=== PATIENT | male | born 1960 | race African-American/Black ===

== ENCOUNTER 2017-11-05 15:34 | Emergency (ER) | payer MEDICARE ==
[2017-11-05 15:56] LABS: Glucose,Whole Blood 91 mg/dL (75-99)
--- NOTE | 2017-11-05 17:39 | ED ---
Recheck HPI - General Chief Complaint: Recheck/Abnormal Lab/Rx Stated Complaint: Black Left Big Toe Time Seen by Provider: 11/05/17 16:56 Source: patient, RN notes reviewed Mode of arrival: ambulatory Limitations: no limitations - History of Present Illness Initial Comments: This a 56-year-old male presents emergency Department chief complaint infection to his left foot first digit. Patient states she saw a waiter/waitress captain for his right and left foot his toenail removed on the right side states his symptoms are getting better over there but states it left ear was not bad up until last few days. Patient states that he noticed some posturing out from underneath his nail states that there is some black scabby-like area underneath his nail. He states it is slightly painful. Denies any known fever, chills. No warmth to his foot no swelling to his foot. He denies trauma. Patient claims that his diabetic pill he does not take any medications for diabetes. Patient currently takes [place], ibuprofen and lisinopril. Patient states he does watches his diet well. Patient's current blood glucose is 91. Patient offers no other complaints. - Related Data Previous Rx's Medication Instructions Recorded Sulfamethox-Tmp 800-160Mg [Bactrim 1 each PO Q12HR #20 tab 11/05/17 Ds] Allergies Allergy/AdvReac Type Severity Reaction Status Date / Time ibuprofen [From Motrin] AdvReac Nausea & Verified 11/05/17 15:55 Vomiting Review of Systems ROS Statement: Those systems with pertinent positive or pertinent negative responses have been documented in the HPI. ROS Other: All systems not noted in ROS Statement are negative. Past Medical History Past Medical History: Diabetes Mellitus, Hyperlipidemia, Hypertension History of Any Multi-Drug Resistant Organisms: None Reported Past Surgical History: Back Surgery Additional Past Surgical History / Comment(s): pain pump , right toe Past Psychological History: No Psychological Hx Reported Smoking Status: Former smoker Past Alcohol Use History: None Reported Past Drug Use History: None Reported General Exam Limitations: no limitations General appearance: alert, in no apparent distress Head exam: Present: atraumatic, normocephalic, normal inspection Respiratory exam: Present: normal lung sounds bilaterally. Absent: respiratory distress, wheezes, rales, rhonchi, stridor Cardiovascular Exam: Present: regular rate, normal rhythm, normal heart sounds. Absent: systolic murmur, diastolic murmur, rubs, gallop, clicks Extremities exam: Present: other (Left foot first digit there is some scabbing in drainage noted from the distal part underneath his nail there is mild tenderness to the told there is no swelling there is no redness or discoloration pedal pulses are equal bilaterally there is a signs of onychomycosis) Skin exam: Present: warm, dry, intact, normal color. Absent: rash Course Vital Signs 11/05/17 15:50 Temperature 97.0 F L Pulse Rate 78 Respiratory 16 Rate Blood Pressure 162/89 O2 Sat by Pulse 98 Oximetry Medical Decision Making - Medical Decision Making 56-year-old male presents emergency Department chief complaint of toe infection. Patient has primarily onychomycosis. There may be some underlying bacterial infection as a has been some purulent drainage per patient. Patient we given antibiotics patient is advised to follow-up with his waiter/waitress captain for this and have his toenail removed. X-ray was reviewed there is no acute osteomyelitis or other abnormalities noted. Patient agrees to plan. - Lab Data Lab Results 11/05/17 Range/Units 15:53 POC Glucose (mg/dL) 91 (75-99) mg/dL POC Glu Cook Mess ID Summer Short Disposition Clinical Impression: Onychomycosis, Toe infection Disposition: HOME SELF-CARE Condition: Stable Instructions: [place] (ED) Additional Instructions: Please return to the Emergency Department if symptoms worsen or any other concerns. Prescriptions: Sulfamethox-Tmp 800-160Mg [Bactrim Ds] 1 each PO Q12HR #20 tab Referrals: Tiago Warren DO [Primary Care Provider] - 1-2 days Time of Disposition: 17:55
--- NOTE | 2017-11-05 17:50 | XR ---
EXAMINATION TYPE: XR toes LT DATE OF EXAM: 11/05/2017 COMPARISON: NONE HISTORY: Lack left toe history of diabetes. TECHNIQUE: 4 views of the left first toe were obtained. FINDINGS: No acute fracture or subluxation is identified. There is no radiopaque foreign body. Soft t issue structures are unremarkable. IMPRESSION: No abnormality.
[2017-11-05 18:09] VITALS: BP 139/92; PULSE 74; RESP 17; TEMP 97.8
== END 2017-11-05 18:08 | disposition home or self-care (01) ==
LOC: EC 15:34
DX: B35.1 Tinea unguium (principal); I10 Essential (primary) hypertension; Z87.891 Personal history of nicotine dependence; Z79.1 Long term (current) use of non-steroidal anti-inflammatories (NSAID); Z79.891 Long term (current) use of opiate analgesic; Z79.899 Other long term (current) drug therapy; Z88.6 Allergy status to analgesic agent
CPT/HCPCS: 36415; 99283

== ENCOUNTER → 2020-06-10 | Outpatient (CLI) | payer BC, OTHER ==
--- NOTE | 2020-06-10 08:21 | CT ---
EXAMINATION TYPE: CT ankle RT wo con DATE OF EXAM: 06/10/2020 COMPARISON: None HISTORY: Right ankle pain CT DLP: 208.[address] of the right ankle with reconstruction imaging. TECHNIQUE: Unenhanced CT of the right ankle was performed with bone and soft tissue window settings s ubmitted in the axial coronal and sagittal planes. At a separate workstation [id number] TR imaging was obta ined. FINDINGS There is disuse osteopenia identified. Well-corticated ossific densities are noted adjacent to the me dial malleolus felt to reflect remote avulsion fractures. I do not see evidence for an acute displace d fracture at this time. Ankle mortise is intact. Vacuum changes are noted of the talocalcaneal joint anteriorly. Plantar calcaneal spur formation seen. No evidence of bony lesion. No destructive proces s. No soft tissue mass is evident IMPRESSION: 1. Degenerative changes without evidence for acute fracture or dislocation.
== END | disposition home or self-care (01) ==
LOC: RADCTMAIN 07:08
PROVIDERS: ATTEND Orthopaedic Surgery Foot and Ankle Surgery
DX: M19.071 Primary osteoarthritis, right ankle and foot (principal)

== ENCOUNTER → 2021-04-22 | Outpatient (CLI) | payer OTHER ==
--- NOTE | 2021-04-22 09:41 | CT ---
EXAMINATION TYPE: CT ankle RT wo con DATE OF EXAM: 04/22/2021 COMPARISON: 06/10/2020 HISTORY: 60-year-old male Z47.89 Encounter for other orthopedic aftercare. History of hypothyroidism over foot in 2020. Surgical reconstruction. TECHNIQUE: Contiguous axial scanning of the right ankle without IV contrast. Coronal and sagittal rec onstructions performed. 3-D reconstructions generated on a dedicated independent workstation. CT DLP: 328 mGycm Automated exposure control for dose reduction was used. FINDINGS: Evidence of hindfoot intertarsal surgical arthrodesis. Subtalar joint arthrodesis. -The small dorsal plate and screw across the talonavicular joint is intact. -The larger posteriorly directed screw crossing the talonavicular joint with tip terminating in the s inus tarsi region also appears intact. The screw head abuts the superior articular margin of the medi al cuneiform. -Satisfactory bony ankylosis across this joint. 2 screws fixating across the posterior subtalar joint. The screws are intact and there is mature bony ankylosis across the posterior, middle, and anterior subtalar joints. Additional screw fixation across the calcaneocuboid joint with mature bony ankylosis. There is some interval progression in degenerative change at the talonavicular joint with increasing subchondral sclerosis. Corticated ossific densities adjacent to the anterior colliculus of the medial malleolus suggests sequela of prior injury. Moderate-sized plantar heel spur. IMPRESSION: 1. INTACT SURGICAL ARTHRODESIS OF THE HINDFOOT AND SUBTALAR JOINT. SATISFACTORY BONY FUSION IS DEMONS TRATED. 2. OF NOTE, IN REGARDS TO THE LARGE TALONAVICULAR SCREW DIRECTED POSTERIORLY, ITS SCREW HEAD ABUTS TH E SUPERIOR ARTICULAR MARGIN OF THE MEDIAL CUNEIFORM. CORRELATE FOR ANY POTENTIAL MECHANICAL SYMPTOMS. 3. SLIGHT INTERVAL PROGRESSION IN DEGENERATIVE CHANGE AT THE TIBIOTALAR JOINT WITH INCREASING SUBCHON DRAL SCLEROSIS.
== END | disposition home or self-care (01) ==
LOC: RADCTMAIN 07:13
PROVIDERS: ATTEND Orthopaedic Surgery Foot and Ankle Surgery
DX: Z47.89 Encounter for other orthopedic aftercare (principal); M19.071 Primary osteoarthritis, right ankle and foot; Z98.1 Arthrodesis status

== ENCOUNTER → 2024-09-06 | Outpatient (CLI) | payer MEDICARE ==
--- NOTE | 2024-09-07 10:35 | US ---
EXAMINATION TYPE: US bladder DATE OF EXAM: 09/06/2024 COMPARISON: NONE CLINICAL INDICATION: Male, 53 years old with history of N39.0 URINARY TRACT INFECTION, SITE NOT SPECI FIED; Urine frequency per patient. TECHNIQUE: Grayscale and color doppler imaging of the bilateral kidneys and urinary bladder. FINDINGS: EXAM MEASUREMENTS: Post Void Residual Volume: 14.8 mL READING PROFESSOR NOTES: Possible focal wall thickening = 4.4 mm Color Doppler performed to assess ureteral jets. Bilateral Jets seen: Right jet seen Normal Post Void Residual (less than 50ml): Yes IMPRESSION: Urinary bladder wall thickening is difficult to exclude. [facility], , 09/07/2024 10:33 AM
== END | disposition home or self-care (01) ==
LOC: RADUSWWP 15:52
PROVIDERS: ATTEND Family Medicine
DX: N39.0 Urinary tract infection, site not specified (principal); R35.0 Frequency of micturition
CPT/HCPCS: 76857